=== PATIENT | male | born 2005 | race Caucasian/White ===

== ENCOUNTER 2023-09-12 15:08 | Emergency (ER) | payer OTHER, SELFPAY ==
[2023-09-12 15:09] VITALS: BP 131/95
--- NOTE | 2023-09-12 15:35 | ED.GENMED ---
History of Present Illness
General
Chief Complaint: Chest Pain
Source: patient and other (friends)
Exam Limitations: none
Time Seen by Provider: 09/12/23 15:19
Nursing documentation reviewed up to this point in time: agreed with
Travel History
Have you had any contact with someone who has COVID-19?: No
Do you have any symptoms of coronavirus? Fever > 100 degrees, chills, cough, shortness of breath, sore throat, loss of taste or smell, muscle aches, or headache?: No
History of Present Illness
History of Present Illness:
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
right sided chest pain. Patient reports he has noticed intermittent right sided chest pain for the past few days. Patient reports that he woke up this morning and yawned, and developed severe, constant pain in the same location, over the right
side of his chest. Patient denies shortness of breath, but reports that deep inspiration makes the pain worse. Patient denies radiation of the pain into his back, neck, jaw, or arms. Patient denies diaphoresis, nausea, vomiting. Patient denies
recent fevers, chills, nasal congestion, rhinorrhea, sore throat. Patient denies cough. Patient denies hemoptysis, lower extremity edema, personal or family history of VTE, exogenous hormone use. Patient denies that he follows with a
digester hand. He reports he was told as a child that he could not play sports such as football due to the 'cartilage in the chest.'
Past History
Past History
ED Past Medical History: None
ED Past Surgical History: None
Social History
Tobacco: Smoker (1 ppd)
Alcohol: Occasional
Drug: None
Review of Systems
Review of Systems
Allergies reviewed?: Yes
All Other Systems: ROS reviewed and negative except as documented in HPI and ROS
Constitutional: Reports no symptoms
EENT: Reports no symptoms
Respiratory: Reports trouble breathing; Denies cough or hemoptysis
Cardiac: Reports chest pain; Denies diaphoresis, palpitations or syncope
ABD/GI: Reports no symptoms; Denies nausea or vomiting
: Reports no symptoms
Musculoskeletal: Reports no symptoms
Skin: Reports no symptoms
Neurological: Reports no symptoms
Endocrine: Reports no symptoms
Hematologic/Lymphatic: Reports no symptoms
Psychiatric: Reports no symptoms
Phy Exam
General Physical Exam
General Presentation: well appearing and no apparent distress
General Skin: warm and dry
General Habitus: normal
General Mental: alert
General Hydration: appears well hydrated
ENT Exam
ENT Exam: EOMI, pharynx normal, neck supple and normocephalic
Eye Exam
Eye Exam: PERRL, cornea clear and conjunctiva normal
Cardiovascular Exam
Cardiovascular Exam: regular rate/rhythm, no edema, no murmur and normal peripheral pulses
Pulmonary Exam
Pulmonary Exam: lungs clear, no respiratory distress, no rales, no crackles, no rhonchi, no stridor, no wheezing and no cough
Gastrointestinal Exam
Gastrointestinal Exam: normal bowel sounds, non tender, soft, no organomegaly, no pulsatile mass and non distended
Neurological Exam
Neurological Exam: alert, oriented x3, no motor deficits and speech normal
Musculoskeletal Exam
Musculoskeletal Exam: full ROM, no edema and other (no crepitus, no deformity, no erythema, no ecchymosis to the anterior chest wall, there is ttp over the right anterior chest wall which reproduces the patient's pain)
Skin Exam
Skin Exam: normal color, warm/dry, no rash and no petechia
Psychiatric Exam
Psychiatric Exam: normal mood/affect
Scores
Heart Score for Chest Pain Patients
STEMI patient?: No
History: Slightly or Non-Suspicious
ECG: Normal
Age: </= 45 years
Risk Factors: No Risk Factors
Troponin: </= Normal Limit
Heart Score for Chest Pain Patients: 0
Heart Score Risk: 2.5% MACE over next 6 weeks
Course
Orders/Labs/Results
Orders:
Orders
09/12/23 15:12
ECG [Electrocardiogram (*1)] Urgent
Reason for Study: Chest Pain
EKG- Treatment ONCE
09/12/23 15:29
Acetaminophen [Tylenol] 650 mg PO NOW STA
Ibuprofen [Motrin] 600 mg PO NOW STA
CR Chest - 2 Views Urgent
Comment:
Reason For Exam: right sided chest pain
Vital Signs
Initial and Last Documented VS:
Initial Vital Signs
Temp Pulse Resp BP Pulse Ox
98.0 F 115 20 131/95 98
09/12/23 15:09 09/12/23 15:09 09/12/23 15:09 09/12/23 15:09 09/12/23 15:09
Last Documented Vital Signs
Temp Pulse Resp BP Pulse Ox
98.0 F 66 19 131/95 98
09/12/23 15:09 09/12/23 16:26 09/12/23 16:26 09/12/23 15:09 09/12/23 16:26
*EKG
Interpreted by ED Provider?: Yes
EKG Intrepretation Date: 09/12/23
Interpretation: normal
Comparison EKG: no comparison EKG present
Heart Rate: 95
Rate: normal
Rhythm: sinus
Wainwright: normal axis
Interval: normal interval
QRS Pattern: normal QRS
Ischemia: no ischemia
*Critical Care Note
Total Time (30-74mins, 75-104mins- exclusive of procedures): Not Applicable
Update Note
Update Note:
Pt is a 18 yo male who was told he has extra cartilage in his chest/heart as a young child, but never followed by cardiology, who presents to the emergency department for evaluation of right sided chest pain which was mild and intermittent over the
past 2 weeks, but became more severe this morning after yawning. Pt endorses a pleuritic component to his pain. Pt denies any VTE risk factors. On arrival, pt initially tachycardic to 115bpm, afebrile. On exam, pt is well-appearing and in NAD
with a normal cardiopulmonary exam and reproducible chest wall tenderness without crepitus, deformity, or overlying skin changes. EKG was obtained and demonstrates no acute ischemic changes, no dysrhythmia. CXR demonstrates NAD. Case discussed
with ED attending, do not feel that further work-up is indicated at this time and symptoms/exam are consistent with a musculoskeletal etiology of the patient's pain. Patient treated with ibuprofen and Tylenol and is safe for discharge to home with
close outpatient follow-up and return precautions. Patient and his friends expressed understanding of the plan and agreed.
ED Attending Note
-
Portions of this chart may have been created with voice recognition software.� Occasional wrong word or��sound alike� substitutions may have occurred due to the inherent limitations of voice recognition software.
Discharge Plan
Departure
Patient Disposition: Home (Routine Discharge)
Date of Disposition: 09/12/23
Time of Disposition: 16:25
Patient with high blood pressure during this ER visit?: No
Condition: Good
Covid-19: Not Applicable
Discharge Problem:
Chest pain, musculoskeletal
Instructions: Chest Pain PCP Follow Up
Referrals:
Follow up, with a primary care provider [Other] - Follow up in 2-3 days
NONE,* [Family Provider] -
Activity Restrictions/Additional Instructions:
You were seen in the emergency department for chest pain. While you were in the emergency department, you had an EKG and chest x-ray which show no dangerous abnormalities. Your pain is likely due to the muscles and bones in your chest. You may
take ibuprofen 600mg every 6 hours and/or Tylenol 650mg every 4-6 hours as needed for pain. Please follow-up with a primary care provider in the next few days to ensure improvement in your symptoms. Please return to the emergency department for
worsening chest pain, shortness of breath, abdominal pain, persistent vomiting, fever greater than 100.4F, or for any other worsening or concerning symptoms.
Interventions
Interventions:
*General Assessment Last Done: 09/12/23 16:32
ED- Fall Risk Assessment Last Done: 09/12/23 15:55
*ED COVID-19 Vaccine History Last Done: 09/12/23 15:09
*Nursing Disposition Last Done: 09/12/23 16:34
ED- Cardiac Assessment Last Done: 09/12/23 15:55
Discharge Date and Time
Discharge Date/Time: 09/12/23 16:34
Print Language: DIVEHI
[2023-09-12] MEDS: MOTRIN 600 MG PO (15:43)
[2023-09-12] MEDS: TYLENOL 650 MG PO (15:43)
== END 2023-09-12 16:34 | disposition home or self-care (01) ==
LOC: EMR 15:08
PROVIDERS: EMERGENCY PHYSICIAN Student in an Organized Health Care Education/Training Program
DX: R07.89 Other chest pain (principal); R00.0 Tachycardia, unspecified; F17.210 Nicotine dependence, cigarettes, uncomplicated
CPT/HCPCS: 99284; 71046; 93005